=== PATIENT | male | born 1935 | race Caucasian/White ===

== ENCOUNTER → 2019-01-12 | Outpatient (CLI) | payer MEDICARE, MEDICAID ==
[~2019-01-12] MED LIST: CATHETER FLUSH 10 ML SYR IV PRN; HOLD METFORMIN - RECEIVED CONTRAST 20 ML VIAL IV SCH; IOHEXOL 350 MG/ML 100 ML (OMNIPAQUE 350) VIAL IV ONE; NS 100 ML (IVPB) BAG IV ONE
[2019-01-12 10:01] LABS: ALANINE AMINOTRANSFERASE 7 U/L (0-55); ALKALINE PHOSPHATASE 112 U/L (40-136); BILIRUBIN,TOTAL 0.6 MG/DL (0.1-1.0); BUN/CREATININE RATIO 25; CARBON DIOXIDE 28 MMOL/L (21-32); CHLORIDE 104 MMOL/L (98-107); CREATININE SERUM 0.91 MG/DL (0.60-1.30); GFR ESTIMATED > 60; GLUCOSE 117 MG/DL (70-105); SODIUM 140 MMOL/L (135-145); TOTAL PROTEIN 7.2 GM/DL (6.4-8.2)
[2019-01-12 10:02] LABS: ALBUMIN 4.1 GM/DL (3.2-4.5)
--- NOTE | 2019-01-12 18:09 | Diagnostic Imaging Report ---
PROCEDURE: CT chest with and without contrast. TECHNIQUE: Multiple contiguous axial images were obtained through the chest before and after administration of intravenous contrast. Auto Exposure Controls were utilized during the CT exam to meet ALARA standards for radiation dose reduction. INDICATION: Respiratory distress There are emphysematous changes in the lungs. There is some consolidation at the right medial lung base and some right posterior pleural thickening. Both of these were present on the prior study from 03/24/2017. There is some coronary calcific atherosclerosis. There is aortic atherosclerosis but no aneurysm or dissection. There are no appreciable pulmonary emboli. There are some granulomas in the right lower lung with some calcified right hilar lymph nodes. IMPRESSION: Emphysematous changes in the lungs. There is some right medial basilar parenchymal consolidation unchanged since 03/24/2017. Dictated by: Dictated on workstation # [id number]
== END ==
LOC: RAD FS 09:03
PROVIDERS: ATTEND Nurse Practitioner
DX: Z01.812 Encounter for preprocedural laboratory examination (principal); J98.4 Other disorders of lung; J43.9 Emphysema, unspecified; J18.1 Lobar pneumonia, unspecified organism
CPT/HCPCS: 36415; 71270; 80053

== ENCOUNTER → 2019-07-14 | Outpatient (CLI) | payer MEDICARE, MEDICAID ==
--- NOTE | 2019-07-14 11:32 | Diagnostic Imaging Report ---
PROCEDURE: CT abdomen and pelvis without contrast. TECHNIQUE: Multiple contiguous axial images were obtained through the abdomen and pelvis without the use of intravenous contrast. Auto Exposure Controls were utilized during the CT exam to meet ALARA standards for radiation dose reduction. INDICATION: Intermittent abdominal pain, bloating with bloody stools of 2 months' duration. Study interpreted in correlation with overlapped images obtained during a chest CT performed 01/12/2019. FINDINGS: There are few colonic diverticuli most notably at the sigmoid but they showed no evidence for acute or active diverticulitis. There is no small or large bowel wall thickening and there was no perienteric or pericolonic edema. No identifiable large bowel wall mass. No obstruction or perforation. Some pleural thickening as well as pleural parenchymal scarring in the right lung base at the posterior sulcus less pronounced than on the comparison study. No acute basilar pulmonary pathology. The gallbladder is surgically absent. The liver, spleen, adrenals, and pancreas all appeared unremarkable at this uninfused exam. Cyst off the lower pole of the left kidney is a benign finding. There is aortoiliac nonaneurysmal atherosclerotic vascular calcifications. The osseous structures are nonacute. IMPRESSION: Noninflamed diverticulosis. No identifiable mass, obstructive features, inflammatory process, ascites, fluid collection or other acute abnormalities. Dictated by: Dictated on workstation # [id number]
== END ==
LOC: RAD FS 08:28
PROVIDERS: ATTEND Nurse Practitioner
DX: K92.1 Melena (principal); K57.30 Diverticulosis of large intestine without perforation or abscess without bleeding; R14.0 Abdominal distension (gaseous); Z90.49 Acquired absence of other specified parts of digestive tract
CPT/HCPCS: 74176